=== PATIENT | male | born 1950 | race Caucasian/White ===

== ENCOUNTER 2025-06-01 21:05 | Emergency (ER) | payer OTHER ==
[~2025-06-01 21:05] MED LIST: Iopamidol 370 76% 100 ML VIAL ONE
[2025-06-01] MEDS ORDERED: Pantoprazole 40 MG VIAL ONE (22:05)
[2025-06-01 22:09] LABS: ALT (SGPT) 15 U/L (Less than 45); AST (SGOT) 29 U/L (11-34); Albumin 4.0 g/dL (3.1-4.5); Alkaline Phosphatase 74 U/L (40-110); Anion Gap 12 mmol/L (10-20); BUN (Urea Nitrogen) 26 mg/dL (8.4-25.7); Bilirubin, Total 1.5 mg/dL (0.3-1.2); Calc. Creatinine Clearance 0 mL/min (70-130); Calcium 8.6 mg/dL (7.8-10.44); Carbon Dioxide 24 mmol/L (23-31); Chloride 103 mmol/L (98-107); Globulin 3.1 g/dL (2.4-3.5); Glucose 212 mg/dL (83-110); Lipase 17 U/L (8-78); Potassium 4.3 mmol/L (3.5-5.1); Sodium 135 mmol/L (136-145)
[2025-06-01 22:12] LABS: Troponin I Less than 0.010 ng/mL (< 0.028)
[2025-06-01 22:14] LABS: #Basophils Less than 0.03 10x3/uL (0.0-0.2); #Eosinophils 0.03 10x3/uL (0.0-0.5); #Monocytes 0.72 10x3/uL (0.0-1.1); #Neutrophils 4.27 10x3/uL (1.5-8.4); %Basophils 0.0 % (0.0-2.0); %Eosinophils 0.5 % (0.0-6.0); %Lymphocytes 22.6 % (18.0-47.0); %Monocytes 10.9 % (0.0-10.0); %Neutrophils 64.3 % (40.0-75.0); Hematocrit 16.5 % (38.8-50.0); Hemoglobin 5.3 g/dL (13.5-17.5); Mean Corpuscular Hemoglobin 29.8 pg (27.0-33.0); Mean Corpuscular Volume 92.7 fL (81.2-95.1); Platelet Count 156 10x3/uL (150-450); Red Blood Cell (RBC) Count 1.78 10x6/uL (4.32-5.72); White Blood Cell (WBC) Count 6.63 10x3/uL (3.5-10.5)
== END 2025-06-02 10:20 | disposition short-term general hospital (02) ==
LOC: CSHERS 21:05
DX: K92.2 Gastrointestinal hemorrhage, unspecified (principal); E11.9 Type 2 diabetes mellitus without complications; I10 Essential (primary) hypertension; E78.5 Hyperlipidemia, unspecified; Z79.899 Other long term (current) drug therapy; Z79.4 Long term (current) use of insulin; Z79.84 Long term (current) use of oral hypoglycemic drugs
CPT/HCPCS: 36415; 36430; 74174; 80053; 83605; 83690; 84484; 85025; 86850; 86860; 86870; 86880; 86900; 86901; 86905; 86922; 86970; 86978; 93005; 96374; J2470; P9016; Q9967